=== PATIENT | female | born 1985 | race Two or more races ===

== ENCOUNTER 2021-05-17 16:30 | Emergency (ER) | payer OTHER ==
[~2021-05-17] VITALS: Ht 170.2 cm; Wt 117.5 kg
[2021-05-17 19:08] VITALS: BP 145/90
[2021-05-17] MEDS ORDERED: LACTULOSE 20Gm/30ML SOLN PO ONE (23:45)
[2021-05-17] MEDS ORDERED: DOCUSATE SOD 100 MG CAP PO ONE (23:45)
[2021-05-17] MEDS ORDERED: SENNA 8.6 MG TAB PO ONE (23:45)
[2021-05-18] MEDS ORDERED: ONDANSETRON ODT 4 MG TAB PO ONE (00:30)
[2021-05-18] MEDS ORDERED: diphenhdrAMINE HCL 50 MG/1 ML VL IM ONE (00:45)
== END 2021-05-18 06:08 | disposition home or self-care (01) ==
LOC: ER 16:30
DX: K59.00 Constipation, unspecified (principal); R10.84 Generalized abdominal pain; E66.9 Obesity, unspecified; J45.909 Unspecified asthma, uncomplicated; Z68.41 Body mass index [BMI] 40.0-44.9, adult; Z98.84 Bariatric surgery status
CPT/HCPCS: 74018; 96372; 99284; J1200; Q0162